=== PATIENT | male | born 1950 | race Two or more races ===

== ENCOUNTER 2025-04-08 13:32 | Outpatient (CLI) | payer MEDICARE, BC ==
[2025-04-08 13:55] LABS: Hematocrit 35.0 % (41.0-53.0); Hemoglobin 11.4 g/dL (13.5-17.5); Mean Corpuscular Hemoglobin 30.1 pg (28.0-32.0); Mean Corpuscular Volume 92.3 fL (80.0-100.0); Nucleated Red Blood Cells % 0.0 %
[2025-04-08 14:37] LABS: Chloride 104 mmol/L (98-107); Potassium 4.7 mmol/L (3.5-5.1); Sodium 140 mmol/L (136-145)
[2025-04-08 14:38] LABS: Anion Gap 12 (5-15); Calcium 9.6 mg/dL (8.7-10.4); Carbon Dioxide 24 mmol/L (20-31)
[2025-04-08 14:43] LABS: BUN/Creatinine Ratio 16.0 (10.0-20.0); Blood Urea Nitrogen 17 mg/dL (9-23); Glucose 219 mg/dL (74-106)
== END 2025-04-08 17:00 | disposition home or self-care (01) ==
LOC: LAB 13:32
PROVIDERS: ATTEND Thoracic Surgery (Cardiothoracic Vascular Surgery)
DX: I25.10 Atherosclerotic heart disease of native coronary artery without angina pectoris (principal); Z95.1 Presence of aortocoronary bypass graft
CPT/HCPCS: 36415; 80048; 85025